=== PATIENT | female | born 1970 | race Two or more races ===

== ENCOUNTER 2018-07-07 20:38 | Emergency (ER) | payer MEDICAID ==
--- NOTE | 2018-07-07 21:04 | EDPHY ---
HPI/HX/ROS/PE/MDM Narrative: CHIEF COMPLAINT: Chest pressure HISTORY OF PRESENT ILLNESS: The patient is a 48 y/o female complaining of chest pressure, onset 1 hour ago and resolving. She was hospitalized recently for similar symptoms. 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 Today, she was seated when symptoms began. She localized the pain to the upper left region of her chest, extending slightly to the side. She describes the pressure as feeling as though she can't take a deep breath. She splashed herself with water and felt slightly better. She has associated palpitations. She denies nausea, vomiting, or any other associated symptoms. She has had palpitations with anxiety previously but not pain. No fever, chills, vomiting, diarrhea, urinary complaints, headache, lightheadedness. REVIEW OF SYSTEMS: A comprehensive 10 system review of systems was reviewed and is otherwise negative aside from elements mentioned in the history of present illness and medical decision making PAST MEDICAL HISTORY: Anxiety SOCIAL HISTORY: Family at bedside, [place]ian-speaking, lives in [place] VITAL SIGNS: Reviewed by me. Tachycardic. GENERAL: Well-developed, well-nourished, resting comfortably in no visible respiratory distress. HEENT: Atraumatic. Eyes: No icterus, no injection. Mouth: moist mucous membranes. No erythema or lesions. Neck: supple with no adenopathy. LUNGS: Clear to auscultation bilaterally, no wheezes, rhonchi or rales. CARDIAC: Tachycardic rate and regular rhythm, no rubs, murmurs or gallops. Tender over the left chest wall. ABDOMEN: Soft, nontender, nondistended, bowel sounds normal. BACK: No CVA tenderness. EXTREMITIES: No trauma. No edema. Range of motion is normal throughout. NEURO: Alert and oriented, grossly nonfocal. SKIN: Warm and dry, no rash. PSYCHIATRIC: Normal mentation, no agitation. ED Course: Study: X-ray of the chest Indication: Chest pain Results: X-ray of the chest was obtained. The results of the study are: normal chest The study was read by the radiologist, Dr. Dowd. The patient presents with chest pressure. She was in the laboratory tester recently with 20% occlusion of arteries but deemed not significant enough to cause anginal pain. Medical management has been recommended. Tonight she reports chest discomfort and ssociated palpitations, which she has with anxiety attacks. Plan for CBC, basic metabolic panel, troponin, EKG, and chest x-ray. 10:20 PM - The patient's condition improved with Ativan and 1L NS fluid. Her workup has been negative for acute findings. Chest x-ray normal. Negative troponin. Patient with essentially normal cardiac catheterization 2 weeks ago. Chest pain and palpitations improved with Ativan. Suggest that the patient should follow up at [facility] as soon as possible within the next 1-2 days, she get plenty of rest, continue taking her aspirin, and return to the emergency department if she is worsening, has recurrent severe chest pain, chest pain associated with fainting, or other concerns. She agrees to this course of action. MDM: After history and physical examination, the differential for chest pain was considered, including but not limited to, myocardial ischemia, acute coronary syndrome, pulmonary embolus, chest wall pain, pleural inflammation and pulmonary infectious causes. - Data Points Imaging Results: Chest X-Ray 07/07/18 21:07 Impression: Normal chest. Laboratory Results: Laboratory Results 07/07/18 20:52 07/07/18 20:52 Medications Given: Discontinued Medications Aspirin (Aspirin) 324 mg PO EDNOW ONE Stop: 07/07/18 21:08 Last Admin: 07/07/18 21:22 Dose: 324 mg Sodium Chloride (Ns) 1,000 mls @ 0 mls/hr IV ONCE ONE; Wide Open PRN Reason: Protocol Stop: 07/07/18 22:05 Last Admin: 07/07/18 22:07 Dose: 1,000 mls Lorazepam (Ativan Injection) 1 mg IVP EDNOW ONE Stop: 07/07/18 21:09 Last Admin: 07/07/18 21:22 Dose: 1 mg Point of Care Test Results: Chemistry 07/07/18 21:00 POC Troponin I 0.01 ng/mL ng/mL (0.00-0.08) General Time Seen by Provider: 07/07/18 20:46 Initial Vital Signs: Initial Vital Signs Temperature (C) 37.4 C 07/07/18 20:39 Heart Rate 113 H 07/07/18 20:39 Respiratory Rate 18 07/07/18 20:39 Blood Pressure 141/122 H 07/07/18 20:39 O2 Sat (%) 99 07/07/18 20:39 O2 Delivery Mode Room Air Allergies/Adverse Reactions: No Known Allergies Allergy (Verified 07/07/18 20:42) Home Medications: Medication Instructions Recorded Aspirin 07/07/18 Departure - Departure Disposition: Home, Routine, Self-Care Clinical Impression: Anxiety Chest pain Qualifiers: Chest pain type: unspecified Qualified Code(s): R07.9 - Chest pain, unspecified Condition: Good Instructions: Chest Pain (ED), Anxiety (ED) Additional Instructions: 1. Please follow up at [facility] for re-evaluation. 2. If you continue to have episodes of anxiety, please discussed with her primary care physician at [facility]. 3. Please continue to take aspirin 81 mg daily. 4. Return to the emergency department or seek care urgently if you have recurrent severe chest pain associated with fainting, vomiting, rapid heartbeat , severe shortness of breath, or other concerns. 1. Por favor sharee un seguimiento en [facility] para ac nueva evaluacin. 2. Si contina teniendo episodios de ansiedad, hable con rashid mdico de atencin primaria en [facility]. 3. Contine tomando aspirina 81 mg al da. 4. Regrese al servicio de urgencias o busque atencin urgente si tiene dolor tor cico recurrente grave asociado con desmayos, vmitos, latidos cardacos rpidos , dificultad para respirar grave u otras inquietudes. Referrals: [facility],. [Clinic] - As per Instructions Timbo Trujillo MD [Medical Doctor] - As per Instructions Print Language: [place]ian Report Scribed for: Hafsa Mcmanus Report Scribed by: Rolanda Antoine Date of Report: 07/07/18 Time of Report: 21:32 Physician Review and Approval Statement: Portions of this note were transcribed by a biomedical equipment support specialist. I personally performed a history, physical exam, medical decision making, and confirmed accuracy of information the transcribed note.
[2018-07-07] MEDS ORDERED: ASPIRIN 81 MG CHEWABLE TAB PO ONE (21:07)
[2018-07-07] MEDS ORDERED: LORazepam 2 MG/ML INJ IVP ONE (21:08)
[2018-07-07 21:17] LABS: PLATELET COUNT 282 10^3/uL (150-400)
[2018-07-07] MEDS ORDERED: NS 1,000 ML IV ONE (22:04)
--- NOTE | 2018-07-07 22:25 | CPEKG ---
Test Reason : OPEN Blood Pressure : / mmHG Vent. Rate : 096 BPM Atrial Rate : 097 BPM P-R Int : 155 ms QRS Dur : 081 ms QT Int : 356 ms P-R-T Axes : 024 -29 022 degrees QTc Int : 450 ms Sinus rhythm Borderline left axis deviation Low voltage, precordial leads Confirmed by Hafsa Mcmanus ([id number]) on 07/07/2018 10:24:37 PM Referred By: Confirmed By:Hafsa Mcmanus
[2018-07-07 23:05] VITALS: BP 107/68
== END 2018-07-07 23:31 | disposition home or self-care (01) ==
DX: R07.9 Chest pain, unspecified (principal); F41.9 Anxiety disorder, unspecified
CPT/HCPCS: 84484-PO; 96374; J2060